=== PATIENT | female | born 1975 | race Caucasian/White ===

== ENCOUNTER 2020-11-08 11:52 | Outpatient (CLI) | payer BC, SELFPAY ==
[2020-12-02 13:51] LABS: Reference Lab Test Result POSITIVE
== END 2020-11-08 11:53 | disposition home or self-care (01) ==
PROVIDERS: PCP Internal Medicine; Visit Provider Internal Medicine
DX: Z01.84 Encounter for antibody response examination (principal)
CPT/HCPCS: 36415; 86769

== ENCOUNTER 2021-11-26 12:23 | Outpatient (CLI) | payer BC, SELFPAY ==
[2021-11-26 14:04] LABS: Influenza Control Valid (Valid); SARS-CoV-2 Ag Negative (Negative)
== END 2021-11-26 12:24 | disposition home or self-care (01) ==
LOC: CHSLAB 12:26
PROVIDERS: PCP Internal Medicine; Visit Provider Internal Medicine
DX: R50.9 Fever, unspecified (principal); Z20.822 Contact with and (suspected) exposure to COVID-19
CPT/HCPCS: 87426; 87804; C9803

== ENCOUNTER 2022-11-08 09:14 | Outpatient (CLI) | payer BC, SELFPAY ==
--- NOTE | ~2022-11-08 | US_ITS ---
Abdominal Sonogram: Real-time sonographic imaging of the abdomen was performed. Clinical History: Dysphagia, abdominal pain Findings: The liver appears normal with no evidence of mass lesion or bile duct dilatation. Main por homar vein demonstrates normal direction of flow. The spleen is normal in size without evidence of foca l lesion. The gallbladder is well distended, and contains echogenic, shadowing gallstones. No gallbl adder wall thickening. The common bile duct measures 5 mm. The visualized pancreas, aorta, and IVC a re unremarkable. The right kidney measures 11.6 cm in length and the left kidney measures 11.6 cm. There is no hydronephrosis or renal calculus. Impression: Cholelithiasis. Reviewed, dictated and finalized at location [] MOVER Impression: Cholelithiasis.
--- NOTE | ~2022-11-08 | XR_ITS ---
EXAMINATION: UGI AIR CONTRAST W/ ESOPHAGRAM DATE: 02/02/08 09:43:00 INDICATION: Gastroesophageal reflux TECHNIQUE: Thick barium contrast with and without gas effervescent crystals were administered orally. Fluoroscopic images of the esophagus, stomach, and proximal duodenum were obtained in various proje ctions. The hypopharynx was also imaged. Thereafter, overhead images of the thoracic esophagus and ab domen were performed. 42 images. 0.8 minutes of fluoroscopy. FINDINGS: The esophagus is normal in caliber, without mucosal lesions or strictures. There is normal esophagea l peristalsis. There is a small sliding hiatal hernia with gastroesophageal reflux. The hypopharynx i s normal. The gastric folds are normal. The proximal duodenum is also normal in appearance. IMPRESSION: 1. Small sliding hiatal hernia with gastroesophageal reflux.. Reviewed, dictated and finalized at location A. T ADMINISTRATIVE ASSISTANT
== END 2022-11-08 09:15 | disposition home or self-care (01) ==
PROVIDERS: PCP Internal Medicine; Visit Provider Internal Medicine
DX: R13.10 Dysphagia, unspecified (principal); K21.9 Gastro-esophageal reflux disease without esophagitis; K44.9 Diaphragmatic hernia without obstruction or gangrene; K80.20 Calculus of gallbladder without cholecystitis without obstruction
CPT/HCPCS: 74240; 76700

== ENCOUNTER 2022-11-10 08:18 | Outpatient (CLI) | payer BC, SELFPAY ==
--- NOTE | ~2022-11-10 | NM_ITS ---
EXAMINATION: NM hepatobiliary wo pharm DATE: 11/10/2022 12:17 LIVE OUT NANNY INDICATION: Gallstones. COMPARISON: Ultrasound dated 11/08/2022. TECHNIQUE: 4.6 mCi Tc-99m mebrofenin (Choletec) was administered intravenously. Scintigraphic images of the abdomen were obtained for one hour. At the 1 hour time point, the patient drank 8 oz Ensure, and imaging was continued for 60 minutes. Gallbladder ejection fraction was calculated by the technol ogist. FINDINGS: There is normal clearance of radiotracer from the blood pool. There is homogeneous tracer u ptake by the liver. Activity progresses to the bowel and gallbladder. The gallbladder ejection fract ion is 17%. Note that with this technique, normal GBEF >= 33%. IMPRESSION: 1. Gallbladder ejection fraction below normal limits measuring 17%, which can be associated with acu te or chronic cholecystitis in the appropriate clinical setting. Reviewed, dictated and finalized at location A. OUT NANNY IMPRESSION: 1. Gallbladder ejection fraction below normal limits measuring 17%, which can be associated with acute or chronic cholecystitis in the appropriate clinical s etting.
== END 2022-11-10 08:19 | disposition home or self-care (01) ==
PROVIDERS: PCP Internal Medicine; Visit Provider Internal Medicine
DX: K80.20 Calculus of gallbladder without cholecystitis without obstruction (principal)
CPT/HCPCS: 78226; A9537

== ENCOUNTER 2023-07-08 06:50 | Outpatient (CLI) | payer BC, SELFPAY ==
--- NOTE | ~2023-07-08 | US_ITS ---
EXAMINATION: US abdomen limited DATE: 07/08/2023 07:32 INDICATION: Unspecified abdominal pain. TECHNIQUE: Multiple grayscale and Doppler ultrasound images of the abdomen were obtained. COMPARISON: Ultrasound 11/08/2022 FINDINGS: The visualized portions of the head and body of the pancreas are normal. The liver is antonina l without focal lesion. There is normal flow in main portal vein. The gallbladder is normal in size a nd contains gallstones. Gallbladder wall thickening is noted. There is no sonographic Louise sign. Th e common duct is normal and measures 5 mm. IMPRESSION: 1. Cholelithiasis. Gallbladder wall thickening may be secondary to chronic cholecystitis. Reviewed, dictated and finalized at location A. IMPRESSION: 1. Cholelithiasis. Gallbladder wall thickening may be secondary to chronic chol ecystitis.
== END 2023-07-08 06:51 | disposition home or self-care (01) ==
PROVIDERS: PCP Internal Medicine; Visit Provider Internal Medicine
DX: R10.9 Unspecified abdominal pain (principal); K80.20 Calculus of gallbladder without cholecystitis without obstruction
CPT/HCPCS: 76705

== ENCOUNTER 2023-08-02 08:55 | Outpatient (CLI) | payer BC, SELFPAY ==
[2023-08-02 09:46] LABS: Alanine Aminotransferase 21 U/L (6-35); Alkaline Phosphatase 108 U/L (38-126); Amylase 53 U/L (30-110); Aspartate Amino Transferase 23 U/L (14-36); Bilirubin,Total 0.7 mg/dL (0.2-1.3); Lipase 51 U/L (23-300)
== END 2023-08-02 08:56 | disposition home or self-care (01) ==
LOC: ANHSURGERY 08:59
PROVIDERS: PCP Internal Medicine; Visit Provider Surgery
DX: Z01.818 Encounter for other preprocedural examination (principal); K80.10 Calculus of gallbladder with chronic cholecystitis without obstruction
CPT/HCPCS: 36415; 80076; 82150; 83690; 86850; 86900; 86901

== ENCOUNTER 2023-08-04 00:58 | Day surgery (SDC) | payer BC, SELFPAY ==
[2023-08-01 14:21] VITALS: BMI 35.7
--- NOTE | 2023-08-01 14:26 | PC.NURSE ---
Report to the Outpatient Waiting Room, entrance under the green pavilion located off [facility], at time 12:00 on date 08/04/23. Planned Procedure Time: 2:00. Time changes happen often and if your time is changed the preop area will call you the afternoon before. - You and your visitor will be asked to self-screen and do not enter if you have any COVID symptoms. - A mask is optional within the hospital at this time. Patients may have clear liquids (water, carbonated beverages, clear teas, apple juice) until 3 hours prior to surgery (11:00) with a maximum of 20 ounces. - No food from midnight until time of surgery Take the following medications with a SIP of water the morning of surgery: NONE DO NOT STOP ANY OF YOUR OTHER PRESCRIPTION MEDICATIONS PRIOR TO SURGERY ?EXCEPT THE FOLLOWING Medications to discontinue per physician: N/A Date to take last dose: N/A Please no make-up, nail tanzanian, hairspray, perfume, deodorant, or body powder the day of surgery. No jewelry (including any body piercings) or valuables the day of surgery, leave them at home. Please take a shower or bath the night before, or the morning of, surgery with an antibacterial soap (HIBICLENS). Wear comfortable, loose fitting clothing. - Jewelry must be removed prior to entering the operating room. Rings and piercings that are not removed may be cut off. - The hospital will not accept responsibility for valuables. - Please leave all valuables, including medications, at home the day of surgery. If you are going home after surgery, a licensed diesel pile driver operator must drive you home. - NO public transportation without another adult if you receive anesthesia. - We recommend that an adult stay with you for 24 hours following discharge. - We also recommend that you do not drive, make important decision, drink alcoholic beverages, or take any drugs that were not prescribed by your health care provider for at least 24 hours after your discharge time. Follow any additional instructions given to you from your surgeon. If you or anyone in your household have experienced Covid symptoms in the past week, please notify your surgeon or the nurse liaison at the phone number below for possible testing. Telephone instructions given to PT - JOLYNN RIVAS and asked if any additional questions and then verbalized understanding. Patient advised to call surgeon office or pre surgery nurse liaison [phone] if any additional questions.
[2023-08-04] VITALS (7 sets, daily range): BP systolic 107–144; BP diastolic 62–87; PULSE 75–102; RESP 10–18; TEMP 36.3–36.9; O2SAT 96–100
--- NOTE | 2023-08-04 11:55 | WPDHPUPDATE1 ---
History and Physical Update Update Date/Time: 08/04/23 11:55 History and Physical has been reviewed, including an updated exam of the patient. There are NO changes in the patient's condition. Risks, benefits, and alternatives have been discussed and questions answered. Patient agrees to proceed with procedure.
--- NOTE | 2023-08-04 12:47 | P.PNAN_ITS ---
Anes - Initial Pre Proc Eval Procedure: Operation Date: 08/04/23 14:00 Proposed Procedures p Laparoscopic Cholecystectomy - Roni Shepherd MD Date/Time: 08/04/23 12:47 Surgeon: Roni Shepherd MD Pre Op Diagnosis: chronic cholecystitis with calculous Patient Data Age: 47 Gender: F Height: 1.69 m Weight: 108.2 kg Allergies Allergy/AdvReac Type Severity Reaction Status Date / Time Penicillins Allergy Unknown Anaphylactic Verified 08/01/23 14:21 Shock Home Medications Medication Instructions Recorded Confirmed Type olopatadine 0.1 % eye drops 1 drp ophthalmic (eye) BID #5 mL 03/08/23 08/04/23 Rx pantoprazole 40 mg tablet,delayed See Rx Instructions PO DAILY #90 03/08/23 08/04/23 Rx release tabs Patient hx anesthesia problems: none Family hx anesthesia problems: none Results Review: All pre-operative results and documents have been reviewed as part of the pre- operative evaluation. FOR[facility]LY [facility], [facility] Past Medical History Medical History Abnormal gall bladder diagnostic imaging Abnormal ThinPrep Pap test of vagina Allergies BMI 38.0-38.9,adult BMI 39.0-39.9,adult Body mass index (BMI) 40.0-44.9, adult Cough Dysphagia Encounter for routine adult health examination without abnormal findings Exposure to COVID-19 virus Fever Follow up Gall bladder stones History of pre-eclampsia On prison drug therapy Right sided abdominal pain Vitamin D deficiency Family History Family History Father Malignant neoplasm of prostate Mother No problems noted. Social History Social History Smoking status: Never smoker Second hand tobacco smoke exposure: No Alcohol intake: current Drinks per week: 1 Substance use: never Substance use type: does not use Lack of Transportation: No Lack of Food: Never True Current Housing: I Have Housing Concerned About Future Housing: No Difficulty Paying Gas/Electric Bills: No Difficulty Paying for Meds: No Currently Unemployed: No Difficulty w/ Childcare or Family Care: No Living arrangements: with family Occupation/Education: occupation Gender identity (if verbalized by the patient): Female Spiritual care concerns: No Anes - Eval Final PreProcedure Day of Procedure 08/04/23 12:47 Patient weight: obese Heart: regular rate and rhythm Lungs: clear to auscultation Airway: Mallampati scale class II Neurological: alert and oriented Last oral intake: >/= 8 hours ASA classification: II Emergent: no Anesthetic plan: proceed Anesthesia type and monitoring: general ETT and standard monitoring Results Review: All pre-operative results and documents have been reviewed as part of the pre- operative evaluation. Informed Consent: The patient's anesthetic plan and its attendant risks and benefits were discussed with the patient/family/POA. Questions were solicited and answers provided to the satisfaction of the patient/family/POA.
[2023-08-04] MEDS: LACTATED RINGERS 1,000 ML 30 ML IV CONT ×2 (12:50→16:43)
[2023-08-04] MEDS: KETOROLAC 15 MG/ML VIAL (*BKC) IV PUSH (12:55)
[2023-08-04] MEDS: ACETAMINOPHEN 500 MG TABLET 1000 MG PO (12:55)
[2023-08-04] MEDS: ceFAZolin 2 GM/D5W 50 ML 2 GM/50 ML BAG IVPB (15:09)
--- NOTE | 2023-08-04 16:44 | W.PM.PROC2 ---
Procedure Note - Detailed Date of Procedure 08/04/23 Pre-op Diagnosis chronic cholecystitis with calculous Post-op Diagnosis Same Procedure Performed Laparoscopic cholecystectomy Surgeon Roni Shepherd MD Pickle Cutter Natan SALAS Anesthesia General and Local Indications Patient is a 47-year-old woman who has been having epigastric and right upper quadrant pain for quite some time. Imaging has shown gallstones and in particular a fairly large stone near the gallbladder neck. After discussion, she is taken to surgery now for laparoscopic cholecystectomy. Findings Patient did have a very large stone in the neck of the gallbladder. The gallbladder wall was very thickened and chronically inflamed. There were adhesions to the gallbladder. The gallbladder was adherent to the liver surface in the gallbladder fossa. It was very difficult to dissect the gallbladder off the liver without either disrupting the superficial liver surface or entering the gallbladder. The epigastric trocar site had to be enlarged significantly to accommodate the gallbladder with its thickened wall and large stone. There was no biliary ductal dilatation. There was no liver abnormalities. Description of Procedure Patient was taken to surgery and induced into general anesthesia. The abdomen is prepped and draped. The initial trocar was placed in the epigastric area. Prior to placement, local anesthesia was infiltrated, incision was made, and the varies needle was placed into the peritoneal cavity. Insufflation was carried out to adequate abdominal distension. Then a 5 mm applied Medical optical trocar was introduced into the peritoneal cavity without incident. We placed the remaining trocars under direct visualization. Local anesthetic was used prior to placement of each of the trocars. Once set the instruments were in place we took down adhesions to the undersurface of the liver and particularly to the gallbladder. These were omental adhesions. The came down with no bleeding. Once the gallbladder was adequately exposed, we used a laparoscopic aspirator and decompressed the gallbladder. The cholecystotomy was closed with a Vicryl endoloop. The gallbladder is then retracted anterosuperiorly. Traction was placed on the infundibulum just below the large stone. Dissection was carried out in the cholecystohepatic triangle. The cystic duct and cystic artery were carefully dissected. We then dissected the lower 3rd of the gallbladder off the liver so that critical view was achieved. I then securely clipped and divided the cystic artery and cystic duct. The gallbladder was then retracted and we began taking down adhesions to the liver. The upper half of the gallbladder was so inflamed and stuck to the liver surface that it was difficult to avoid either disrupting the liver surface or entering the gallbladder. Both were done intermittently. As we got closer to the fundus, there was some venous bleeding from the liver. We went ahead and freed the gallbladder entirely from the liver. It was placed in an Endo-Catch bag. It was extricated through the epigastric port but not before enlarging the skin incision and also dilating the fascial incision to accommodate the gallbladder with its thickened wall and large stone. Once the gallbladder was removed, we replaced the epigastric trocar. The skin and subcutaneous were occluded with a towel clip so that we could reinsufflate. We then turned our attention to the gallbladder fossa. There have been continued venous bleeding. We suctioned away the old blood and hematoma. There was a small superficial vein that seemed to be oozing. I grasped this with a clamp and dissected some of it free from the liver substance. I clipped 1 end of the vein. The other in was still oozing. Similarly, I grasped that and did some similar dissection to expose the vein. I then clipped this area. That appeared to alleviate the vein bleeding but there was
--- NOTE | 2023-08-04 17:13 | SUR.PHASEI ---
1710: Simple mask removed.
[2023-08-04] MEDS: fentaNYL CITRATE INJ (*CRX) 100 MCG/2 ML VIAL 25 MCG IV PUSH (17:20)
[2023-08-04] MEDS: ONDANSETRON INJ 4 MG/2 ML VIAL IV PUSH (17:52)
== END 2023-08-04 18:05 | disposition home or self-care (01) ==
PROVIDERS: PCP Internal Medicine; Visit Provider Surgery
PROC: 0FT44ZZ Resection of Gallbladder, Percutaneous Endoscopic Approach (ICD-10-PCS; CPT 47562; principal; 2023-08-04 14:00)
DX: K80.10 Calculus of gallbladder with chronic cholecystitis without obstruction (principal); K21.9 Gastro-esophageal reflux disease without esophagitis; E66.9 Obesity, unspecified; Z68.37 Body mass index [BMI] 37.0-37.9, adult
CPT/HCPCS: 47562; 88304; A9270; C1713; J0360; J0690; J1100; J1885; J2250; J2405; J2704; J3010; J7120